=== PATIENT | male | born 1955 | race Caucasian/White ===

== ENCOUNTER 2020-11-17 14:17 | Inpatient (IN) ==
[2020-11-17] MEDS ORDERED: *HR* OxyCODONE/APAP 5/325 TABLET PO ONE (15:28)
[2020-11-17] MEDS ORDERED: Orphenadrine 60 MG/2 ML VIAL IM ONE (18:34)
[2020-11-17] MEDS ORDERED: methylPREDNISolone 125 MG/2 ML VIAL IM STA (18:34)
[2020-11-17] MEDS ORDERED: *HR* HYDROmorphone (PF) 1 MG/ML SYRINGE IM ONE (19:24)
[2020-11-17 21:57] LABS: Basophils # 0.1 K/mcL (0.0-0.2); Basophils % 1.1 %; Eosinophils # 0.1 K/mcL (0.0-0.6); Eosinophils % 1.2 %; Hematocrit 48.9 % (37.5-50.1); Hemoglobin 16.5 g/dL (12.9-16.9); Immature Granulocytes % 0.2 % (0-4); Lymphocytes # 1.4 K/mcL (0.6-4.6); Lymphocytes % 21.7 %; Mean Corpuscular HGB Conc 33.7 g/dL (31.6-35.5); Mean Corpuscular Hemoglobin 30.2 pg (28.0-33.3); Mean Corpuscular Volume 89.4 fL (83.0-100.0); Mean Platelet Volume 9.5 fL (9.4-12.4); Monocytes # 0.3 K/mcL (0.0-1.3); Monocytes % 3.9 %; Neutrophils # 4.6 K/mcL (1.6-8.9); Platelet Count 216 K/mcL (140-400); Red Blood Count 5.47 M/mcL (4.19-5.50); Red Cell Distribution Width 13.5 % (11.5-14.5); Segmented Neutrophils % 71.9 %; White Blood Count 6.4 K/mcL (4.3-11.1)
[2020-11-17 22:13] LABS: Calcium 9.3 mg/dL (8.6-10.3); Potassium 4.6 mEq/L (3.5-5.1)
[2020-11-17] MEDS ORDERED: Ondansetron 4 MG/2 ML VIAL IVP PRN (23:44)
[2020-11-17] MEDS ORDERED: Naloxone 0.4 MG/ML INJ IVP PRN (23:44)
[2020-11-17] MEDS ORDERED: Acetaminophen 325 MG TABLET PO PRN (23:44)
[2020-11-18 05:28] LABS: Basophils % 0.4 %; Hematocrit 52.8 % (37.5-50.1); Hemoglobin 17.2 g/dL (12.9-16.9); Immature Granulocytes % 0.4 % (0-4); Lymphocytes # 0.9 K/mcL (0.6-4.6); Mean Corpuscular HGB Conc 32.6 g/dL (31.6-35.5); Mean Platelet Volume 12.1 fL (9.4-12.4); Monocytes # 0.1 K/mcL (0.0-1.3); Monocytes % 0.9 %; Neutrophils # 5.8 K/mcL (1.6-8.9); Platelet Count 170 K/mcL (140-400); Red Blood Count 5.93 M/mcL (4.19-5.50); Red Cell Distribution Width 13.2 % (11.5-14.5); Segmented Neutrophils % 85.3 %; White Blood Count 6.8 K/mcL (4.3-11.1)
[2020-11-18 05:38] LABS: Calcium 9.3 mg/dL (8.6-10.3); Magnesium 1.7 mg/dL (1.6-2.6); Potassium 4.8 mEq/L (3.5-5.1)
[2020-11-18 05:42] LABS: Prothrombin Time 11.5 Seconds (9.4-12.1)
[2020-11-18 06:35] LABS: Platelet Estimate Normal (Normal)
[2020-11-18] MEDS: *HR* Enoxaparin 40 MG/0.4 ML SYRINGE SQ SCH (07:51)
[2020-11-18] MEDS: diazePAM 10 MG TABLET PO SCH ×3 (07:51→19:57)
[2020-11-18] MEDS: amLODIPine 5 MG TABLET PO SCH (07:51)
[2020-11-18] MEDS: lisinopriL 20 MG TABLET PO SCH (07:51)
[2020-11-18] MEDS: Methylphenidate HCl 10 MG TABLET PO SCH (07:51)
[2020-11-18] MEDS ORDERED: GI Cocktail 40 ML EACH PO ONE (13:32)
[2020-11-18] MEDS ORDERED: Ipratropium/Albuterol Neb 3 ML IH PRN (18:45)
[2020-11-18] MEDS: Sucralfate 1 GM TABLET PO SCH (19:57)
[2020-11-18] MEDS ORDERED: Ketorolac 30 MG/ML VIAL IVP ONE (20:11)
[2020-11-19 05:36] LABS: Basophils # 0.1 K/mcL (0.0-0.2); Basophils % 0.5 %; Eosinophils # 0.1 K/mcL (0.0-0.6); Eosinophils % 0.6 %; Hematocrit 51.2 % (37.5-50.1); Hemoglobin 16.6 g/dL (12.9-16.9); Immature Granulocytes % 0.3 % (0-4); Immature Platelets 3.1 % (1.1-6.1); Lymphocytes # 3.4 K/mcL (0.6-4.6); Lymphocytes % 25.4 %; Mean Corpuscular HGB Conc 32.4 g/dL (31.6-35.5); Mean Corpuscular Hemoglobin 29.4 pg (28.0-33.3); Mean Corpuscular Volume 90.6 fL (83.0-100.0); Mean Platelet Volume 9.6 fL (9.4-12.4); Monocytes # 0.8 K/mcL (0.0-1.3); Neutrophils # 8.9 K/mcL (1.6-8.9); Platelet Count 228 K/mcL (140-400); Red Blood Count 5.65 M/mcL (4.19-5.50); Red Cell Distribution Width 13.5 % (11.5-14.5); Segmented Neutrophils % 67.2 %
[2020-11-19 05:41] LABS: White Blood Count 13.2 K/mcL (4.3-11.1)
[2020-11-19 06:31] LABS: Calcium 9.7 mg/dL (8.6-10.3); Magnesium 2.3 mg/dL (1.6-2.6); Potassium 4.4 mEq/L (3.5-5.1)
[2020-11-19] MEDS: Sucralfate 1 GM TABLET PO SCH ×2 (10:19→20:58)
[2020-11-19] MEDS: *HR* Enoxaparin 40 MG/0.4 ML SYRINGE SQ SCH (10:20)
[2020-11-19] MEDS: Methylphenidate HCl 10 MG TABLET PO SCH ×3 (10:21→20:57)
[2020-11-19] MEDS: lisinopriL 20 MG TABLET PO SCH (10:21)
[2020-11-19] MEDS: diazePAM 10 MG TABLET PO SCH (10:21)
[2020-11-19] MEDS: amLODIPine 5 MG TABLET PO SCH (10:21)
[2020-11-19] MEDS: 0.9 % Sodium Chloride 1,000 ML IVC SCH (13:11)
[2020-11-19] MEDS: *HR* OxyCODONE/APAP 7.5/325 TABLET PO PRN ×2 (14:40→20:57)
[2020-11-20] MEDS: *HR* OxyCODONE/APAP 7.5/325 TABLET PO PRN (02:06)
[2020-11-20 03:22] LABS: Basophils # 0.1 K/mcL (0.0-0.2); Basophils % 0.9 %; Eosinophils # 0.3 K/mcL (0.0-0.6); Eosinophils % 2.7 %; Hematocrit 44.2 % (37.5-50.1); Immature Granulocytes % 0.2 % (0-4); Lymphocytes # 3.7 K/mcL (0.6-4.6); Lymphocytes % 39.6 %; Mean Corpuscular HGB Conc 33.3 g/dL (31.6-35.5); Mean Corpuscular Hemoglobin 30.3 pg (28.0-33.3); Mean Corpuscular Volume 91.1 fL (83.0-100.0); Mean Platelet Volume 9.5 fL (9.4-12.4); Monocytes # 0.8 K/mcL (0.0-1.3); Monocytes % 8.2 %; Neutrophils # 4.6 K/mcL (1.6-8.9); Platelet Count 187 K/mcL (140-400); Red Blood Count 4.85 M/mcL (4.19-5.50); Red Cell Distribution Width 13.4 % (11.5-14.5); Segmented Neutrophils % 48.4 %; White Blood Count 9.4 K/mcL (4.3-11.1)
[2020-11-20 03:23] LABS: Hemoglobin 14.7 g/dL (12.9-16.9)
[2020-11-20 03:42] LABS: Calcium 8.8 mg/dL (8.6-10.3); Magnesium 1.9 mg/dL (1.6-2.6); Potassium 4.6 mEq/L (3.5-5.1)
[2020-11-20] MEDS: *HR* HYDROmorphone (PF) 1 MG/ML SYRINGE IVP PRN ×3 (09:06→21:46)
[2020-11-20] MEDS: amLODIPine 5 MG TABLET PO SCH (09:07)
[2020-11-20] MEDS: Sucralfate 1 GM TABLET PO SCH ×2 (09:07→21:46)
[2020-11-20] MEDS: lisinopriL 20 MG TABLET PO SCH (09:07)
[2020-11-20] MEDS: Methylphenidate HCl 10 MG TABLET PO SCH ×3 (09:07→21:46)
[2020-11-20] MEDS: 0.9 % Sodium Chloride 1,000 ML IVC SCH (09:08)
[2020-11-20] MEDS: *HR* Enoxaparin 40 MG/0.4 ML SYRINGE SQ SCH (09:11)
[2020-11-21] MEDS: *HR* HYDROmorphone (PF) 1 MG/ML SYRINGE IVP PRN (03:45)
[2020-11-21] MEDS: 0.9 % Sodium Chloride 1,000 ML IVC SCH (05:28)
[2020-11-21 06:24] LABS: Calcium 9.1 mg/dL (8.6-10.3); Potassium 4.8 mEq/L (3.5-5.1)
[2020-11-21] MEDS ORDERED: *HR* HYDROmorphone (PF) 1 MG/ML SYRINGE IVP PRN (07:21)
[2020-11-21] MEDS: Methylphenidate HCl 10 MG TABLET PO SCH ×3 (08:46→20:38)
[2020-11-21] MEDS: lisinopriL 20 MG TABLET PO SCH (08:46)
[2020-11-21] MEDS: amLODIPine 5 MG TABLET PO SCH (08:47)
[2020-11-21] MEDS: Sucralfate 1 GM TABLET PO SCH ×2 (08:47→20:38)
[2020-11-21] MEDS: *HR* Enoxaparin 40 MG/0.4 ML SYRINGE SQ SCH (08:47)
[2020-11-21] MEDS: *HR* OxyCODONE/APAP 10/325 TABLET PO PRN ×2 (10:35→17:40)
[2020-11-21] MEDS: diazePAM 5 MG TABLET PO PRN (17:40)
[2020-11-21] MEDS: Gabapentin 300 MG CAPSULE PO SCH (20:38)
[2020-11-22] MEDS: *HR* OxyCODONE/APAP 10/325 TABLET PO PRN ×4 (00:46→21:56)
[2020-11-22] MEDS: 0.9 % Sodium Chloride 1,000 ML IVC SCH ×2 (01:13→21:56)
[2020-11-22] MEDS: Sucralfate 1 GM TABLET PO SCH ×2 (08:46→21:54)
[2020-11-22] MEDS: lisinopriL 20 MG TABLET PO SCH (08:46)
[2020-11-22] MEDS: amLODIPine 5 MG TABLET PO SCH (08:47)
[2020-11-22] MEDS: Methylphenidate HCl 10 MG TABLET PO SCH ×2 (08:47→15:04)
[2020-11-22] MEDS: *HR* Enoxaparin 40 MG/0.4 ML SYRINGE SQ SCH (08:47)
[2020-11-22 10:41] LABS: Calcium 8.9 mg/dL (8.6-10.3); Potassium 4.7 mEq/L (3.5-5.1)
[2020-11-22] MEDS ORDERED: Melatonin 3 MG TABLET PO PRN (16:56)
[2020-11-22] MEDS: predniSONE 20 MG TABLET PO SCH (18:03)
[2020-11-22] MEDS: Azithromycin 250 MG TABLET PO SCH (18:03)
[2020-11-22] MEDS: Ipratropium/Albuterol Neb 3 ML IH SCH (21:36)
[2020-11-22] MEDS: Budesonide/Formoterol 160/4.5 1 PUFF INH IH SCH (21:36)
[2020-11-22] MEDS: diazePAM 5 MG TABLET PO PRN (21:54)
[2020-11-22] MEDS: *HR* Heparin 5,000 UNIT/ML VIAL SQ SCH (21:54)
[2020-11-22] MEDS: Gabapentin 300 MG CAPSULE PO SCH (21:54)
[2020-11-23 01:57] LABS: Calcium 8.9 mg/dL (8.6-10.3); Potassium 5.7 mEq/L (3.5-5.1)
[2020-11-23] MEDS: Ipratropium/Albuterol Neb 3 ML IH SCH ×4 (04:38→21:47)
[2020-11-23] MEDS: *HR* Heparin 5,000 UNIT/ML VIAL SQ SCH ×2 (05:59→14:36)
[2020-11-23] MEDS: Multivit/Ca/Min/Fe/FA 1 TAB TABLET PO SCH (09:33)
[2020-11-23] MEDS: lisinopriL 20 MG TABLET PO SCH (09:33)
[2020-11-23] MEDS: amLODIPine 5 MG TABLET PO SCH (09:33)
[2020-11-23] MEDS: predniSONE 20 MG TABLET PO SCH (09:34)
[2020-11-23] MEDS: Nicotine 21 MG PATCH.TD24 TD SCH (09:34)
[2020-11-23] MEDS: Sucralfate 1 GM TABLET PO SCH ×2 (09:34→19:58)
[2020-11-23] MEDS: *HR* OxyCODONE/APAP 10/325 TABLET PO PRN ×2 (09:34→16:21)
[2020-11-23] MEDS: Budesonide/Formoterol 160/4.5 1 PUFF INH IH SCH ×2 (10:25→21:47)
[2020-11-23] MEDS ORDERED: SODIUM ZIRCONIUM CYCLOSILICATE 5 GM POWD.PACK PO SCH (11:45)
[2020-11-23] MEDS ORDERED: Calcium Gluconate 1gm/50mL 1 GM/50 ML BAG IVPB ONE (15:31)
[2020-11-23] MEDS ORDERED: Insulin Human Regular 10 UNIT in 0.9 % Sodium Chloride 10 ML IV ONE (15:31)
[2020-11-23] MEDS ORDERED: *HR* Dextrose 50 % in Water (Vial) 50 ML VIAL IVP ONE (15:45)
[2020-11-23] MEDS: Azithromycin 250 MG TABLET PO SCH (16:21)
[2020-11-23] MEDS: Gabapentin 300 MG CAPSULE PO SCH (19:58)
[2020-11-24] MEDS: *HR* OxyCODONE/APAP 10/325 TABLET PO PRN ×3 (03:39→23:20)
[2020-11-24] MEDS: diazePAM 5 MG TABLET PO PRN (03:39)
[2020-11-24 04:08] LABS: Calcium 9.3 mg/dL (8.6-10.3); Magnesium 1.9 mg/dL (1.6-2.6); Phosphorous 3.3 mg/dL (2.7-4.5); Potassium 4.9 mEq/L (3.5-5.1)
[2020-11-24 04:12] LABS: Hematocrit 47.5 % (37.5-50.1); Hemoglobin 15.6 g/dL (12.9-16.9); Mean Corpuscular HGB Conc 32.8 g/dL (31.6-35.5); Mean Corpuscular Hemoglobin 29.3 pg (28.0-33.3); Mean Corpuscular Volume 89.3 fL (83.0-100.0); Mean Platelet Volume 9.6 fL (9.4-12.4); Platelet Count 231 K/mcL (140-400); Red Blood Count 5.32 M/mcL (4.19-5.50); Red Cell Distribution Width 13.6 % (11.5-14.5); White Blood Count 11.7 K/mcL (4.3-11.1)
[2020-11-24] MEDS: Ipratropium/Albuterol Neb 3 ML IH SCH ×4 (04:36→22:05)
[2020-11-24] MEDS: Multivit/Ca/Min/Fe/FA 1 TAB TABLET PO SCH (09:27)
[2020-11-24] MEDS: predniSONE 20 MG TABLET PO SCH (09:27)
[2020-11-24] MEDS: amLODIPine 5 MG TABLET PO SCH (09:27)
[2020-11-24] MEDS: Sucralfate 1 GM TABLET PO SCH ×2 (09:27→21:20)
[2020-11-24] MEDS: lisinopriL 20 MG TABLET PO SCH (09:27)
[2020-11-24] MEDS: Nicotine 21 MG PATCH.TD24 TD SCH (09:28)
[2020-11-24] MEDS: Budesonide/Formoterol 160/4.5 1 PUFF INH IH SCH ×2 (10:32→22:05)
[2020-11-24] MEDS: Azithromycin 250 MG TABLET PO SCH (17:07)
[2020-11-24 18:58] VITALS: TEMP 98
[2020-11-24] MEDS: Gabapentin 300 MG CAPSULE PO SCH (21:20)
[2020-11-25] MEDS: Ipratropium/Albuterol Neb 3 ML IH SCH ×3 (03:54→15:19)
[2020-11-25 05:11] LABS: Basophils % 0.3 %; Eosinophils # 0.1 K/mcL (0.0-0.6); Eosinophils % 0.5 %; Hemoglobin 15.6 g/dL (12.9-16.9); Immature Granulocytes % 0.5 % (0-4); Lymphocytes # 2.1 K/mcL (0.6-4.6); Lymphocytes % 19.1 %; Mean Corpuscular HGB Conc 33.2 g/dL (31.6-35.5); Mean Corpuscular Volume 90.4 fL (83.0-100.0); Mean Platelet Volume 9.4 fL (9.4-12.4); Monocytes # 1.1 K/mcL (0.0-1.3); Monocytes % 9.7 %; Neutrophils # 7.7 K/mcL (1.6-8.9); Nucleated Red Blood Cells 0.2 /100 WBC (0); Platelet Count 219 K/mcL (140-400); Red Cell Distribution Width 13.8 % (11.5-14.5); Segmented Neutrophils % 69.9 %; White Blood Count 10.9 K/mcL (4.3-11.1)
[2020-11-25] MEDS: *HR* OxyCODONE/APAP 10/325 TABLET PO PRN ×2 (05:22→11:51)
[2020-11-25 05:30] LABS: Calcium 8.8 mg/dL (8.6-10.3); Magnesium 1.8 mg/dL (1.6-2.6); Phosphorous 3.5 mg/dL (2.7-4.5)
[2020-11-25 06:37] VITALS: BP 113/65; PULSE 91
[2020-11-25] MEDS ORDERED: NIFEdipine XL (24 HR) 30 MG TAB.ER.24 PO SCH (09:00)
[2020-11-25] MEDS: predniSONE 20 MG TABLET PO SCH (09:31)
[2020-11-25] MEDS: Multivit/Ca/Min/Fe/FA 1 TAB TABLET PO SCH (09:31)
[2020-11-25] MEDS: Sucralfate 1 GM TABLET PO SCH (09:32)
[2020-11-25] MEDS: Nicotine 21 MG PATCH.TD24 TD SCH (09:32)
[2020-11-25] MEDS: diazePAM 5 MG TABLET PO PRN (09:36)
[2020-11-25] MEDS: Budesonide/Formoterol 160/4.5 1 PUFF INH IH SCH (10:17)
[2020-11-25 10:20] VITALS: O2SAT 94
[2020-11-25] MEDS ORDERED: *HR* HYDROmorphone (PF) 1 MG/ML SYRINGE IVP ONE (11:47)
[2020-11-25 13:18] LABS: Adenovirus Not Detected (Not Detect); Bordetella Pertussis Not Detected (Not Detect); Chlamydophila pneumoniae Not Detected (Not Detect); Coronavirus 229E Not Detected (Not Detect); Coronavirus HKU1 Not Detected (Not Detect); Coronavirus NL63 Not Detected (Not Detect); Coronavirus OC43 Not Detected (Not Detect); Human Metapneumovirus Not Detected (Not Detect); Human Rhinovirus/Enterovirus Not Detected (Not Detect); Influenza A Subtype 2009 H1 Not Detected (Not Detect); Influenza B Not Detected (Not Detect); Mycoplasma pneumoniae Not Detected (Not Detect); Parainfluenza Virus 1 Not Detected (Not Detect); Parainfluenza Virus 2 Not Detected (Not Detect); Parainfluenza Virus 3 Not Detected (Not Detect); Parainfluenza Virus 4 Not Detected (Not Detect); Respiratory Syncytial Virus Not Detected (Not Detect); SARS-CoV-2 Not Detected (Not Detect)
== END 2020-11-25 14:45 | disposition other institution (70) | DRG 554 ==
LOC: 3NENU 14:17 → EMEROOARM 14:17 → SUATTDRO 23:29 → 3NENU 11-18 00:12 → SUATTDRO 11-19 17:25
PROVIDERS: ADMIT Student in an Organized Health Care Education/Training Program; ATTEND Internal Medicine

== ENCOUNTER 2020-12-15 16:48 | Inpatient (IN) ==
[2020-12-15] MEDS ORDERED: Ipratropium/Albuterol Neb 3 ML IH ONE (18:20)
[2020-12-15] MEDS ORDERED: predniSONE 20 MG TABLET PO ONE (18:35)
[2020-12-15 19:08] LABS: Basophils # 0.1 K/mcL (0.0-0.2); Basophils % 0.8 %; Eosinophils # 0.4 K/mcL (0.0-0.6); Eosinophils % 4.5 %; Hematocrit 53.4 % (37.5-50.1); Hemoglobin 16.7 g/dL (12.9-16.9); Immature Granulocytes % 0.3 % (0-4); Lymphocytes # 2.7 K/mcL (0.6-4.6); Lymphocytes % 30.9 %; Mean Corpuscular HGB Conc 31.3 g/dL (31.6-35.5); Mean Corpuscular Volume 92.9 fL (83.0-100.0); Mean Platelet Volume 9.7 fL (9.4-12.4); Monocytes # 0.8 K/mcL (0.0-1.3); Monocytes % 9.7 %; Neutrophils # 4.6 K/mcL (1.6-8.9); Platelet Count 180 K/mcL (140-400); Red Blood Count 5.75 M/mcL (4.19-5.50); Red Cell Distribution Width 13.8 % (11.5-14.5); Segmented Neutrophils % 53.8 %; White Blood Count 8.6 K/mcL (4.3-11.1)
[2020-12-15 19:34] LABS: Troponin I 0.04 ng/mL (< 0.04)
[2020-12-15 20:05] LABS: Calcium 9.2 mg/dL (8.6-10.3); Potassium 4.6 mEq/L (3.5-5.1)
[2020-12-15 20:40] LABS: Influenza A PCR Negative (Negative); Influenza B PCR Negative (Negative); Resp. Syncytial Virus PCR Negative (Negative)
[2020-12-15 20:41] LABS: SARS-CoV-2 by PCR (In House) Negative (Negative)
[2020-12-15] MEDS ORDERED: Ondansetron 4 MG/2 ML VIAL IVP PRN (21:10)
[2020-12-15] MEDS ORDERED: Acetaminophen 325 MG TABLET PO PRN (21:10)
[2020-12-15] MEDS ORDERED: Naloxone 0.4 MG/ML INJ IVP PRN (21:10)
[2020-12-15] MEDS ORDERED: Ipratropium/Albuterol Neb 3 ML IH PRN (22:29)
[2020-12-15] MEDS: Azithromycin 500 MG in 0.9 % Sodium Chloride 250 ML IVPB SCH (23:31)
[2020-12-16] MEDS ORDERED: *HR* OxyCODONE/APAP 10/325 TABLET PO ONE (02:31)
[2020-12-16 03:01] LABS: Basophils % 0.2 %; Eosinophils % 0.1 %; Hematocrit 50.8 % (37.5-50.1); Hemoglobin 16.4 g/dL (12.9-16.9); Immature Granulocytes % 0.4 % (0-4); Lymphocytes # 0.8 K/mcL (0.6-4.6); Lymphocytes % 9.3 %; Mean Corpuscular HGB Conc 32.3 g/dL (31.6-35.5); Mean Platelet Volume 9.8 fL (9.4-12.4); Monocytes # 0.3 K/mcL (0.0-1.3); Monocytes % 3.5 %; Neutrophils # 7.2 K/mcL (1.6-8.9); Platelet Count 198 K/mcL (140-400); Red Blood Count 5.46 M/mcL (4.19-5.50); Red Cell Distribution Width 13.7 % (11.5-14.5); Segmented Neutrophils % 86.5 %; White Blood Count 8.3 K/mcL (4.3-11.1)
[2020-12-16 03:16] LABS: Prothrombin Time 12.1 Seconds (9.4-12.1)
[2020-12-16 03:17] LABS: Calcium 9.1 mg/dL (8.6-10.3); Magnesium 2.1 mg/dL (1.6-2.6); Potassium 5.1 mEq/L (3.5-5.1)
[2020-12-16] MEDS: *HR* Heparin 5,000 UNIT/ML VIAL SQ SCH ×3 (05:47→21:38)
[2020-12-16] MEDS: Azithromycin 500 MG in 0.9 % Sodium Chloride 250 ML IVPB SCH (08:55)
[2020-12-16] MEDS ORDERED: predniSONE 20 MG TABLET PO SCH (09:00)
[2020-12-16 09:41] LABS: Estimated Average Glucose 134 mg/dl; Hemoglobin A1C 6.3 %
[2020-12-16 09:46] LABS: ABG Base Excess -2 mEq/L (-2 to 3); ABG HCO3 27 mEq/L (21-27); ABG Oxygen Saturation 92 % (95-98); ABG PCO2 59 mmHg (35-45); ABG PH 7.27 pH Units (7.32-7.45); ABG PO2 75 mmHg (85-104); ABG TCO2 29 mEq/L (20-26)
[2020-12-16] MEDS ORDERED: diazePAM 10 MG TABLET PO ONE (10:08)
[2020-12-16] MEDS: Ipratropium/Albuterol Neb 3 ML IH SCH ×5 (10:11→23:54)
[2020-12-16] MEDS: 0.9 % Sodium Chloride 1,000 ML IVC SCH (10:47)
[2020-12-16] MEDS ORDERED: MethylPREDNISolone 40 MG/ML VIAL IVP SCH ×2 (12:30→17:00)
[2020-12-16] MEDS: MethylPREDNISolone 40 MG/ML VIAL IVP SCH (15:44)
[2020-12-16 15:45] LABS: ABG Base Excess 0 mEq/L (-2 to 3); ABG HCO3 25 mEq/L (21-27); ABG Oxygen Saturation 92 % (95-98); ABG PCO2 41 mmHg (35-45); ABG PH 7.39 pH Units (7.32-7.45); ABG PO2 63 mmHg (85-104); ABG TCO2 26 mEq/L (20-26)
[2020-12-16] MEDS: Budesonide/Formoterol 160/4.5 1 PUFF INH IH SCH (20:39)
[2020-12-16] MEDS: diazePAM 10 MG TABLET PO SCH (21:37)
[2020-12-16] MEDS: Sucralfate 1 GM TABLET PO SCH (21:37)
[2020-12-16] MEDS: Methylphenidate HCl 10 MG TABLET PO SCH (21:38)
[2020-12-17] MEDS: 0.9 % Sodium Chloride 1,000 ML IVC SCH ×3 (00:37→22:43)
[2020-12-17] MEDS: MethylPREDNISolone 40 MG/ML VIAL IVP SCH ×3 (00:37→18:18)
[2020-12-17] MEDS: Ipratropium/Albuterol Neb 3 ML IH SCH ×7 (04:47→23:46)
[2020-12-17] MEDS: *HR* Heparin 5,000 UNIT/ML VIAL SQ SCH ×3 (05:46→22:39)
[2020-12-17] MEDS: Budesonide/Formoterol 160/4.5 1 PUFF INH IH SCH ×2 (07:30→19:43)
[2020-12-17] MEDS: NIFEdipine XL (24 HR) 30 MG TAB.ER.24 PO SCH (09:36)
[2020-12-17] MEDS: Gabapentin 100 MG CAPSULE PO SCH ×3 (09:36→20:29)
[2020-12-17] MEDS: Sennosides/Docusate Sodium TABLET PO SCH (09:36)
[2020-12-17] MEDS: diazePAM 10 MG TABLET PO SCH (09:36)
[2020-12-17] MEDS: Sucralfate 1 GM TABLET PO SCH ×2 (09:36→20:29)
[2020-12-17] MEDS: Azithromycin 500 MG in 0.9 % Sodium Chloride 250 ML IVPB SCH (09:36)
[2020-12-17] MEDS: polyethylene glycoL 3350 17 GM POWD.PACK PO SCH (09:37)
[2020-12-17] MEDS: Methylphenidate HCl 10 MG TABLET PO SCH ×3 (09:46→20:29)
[2020-12-17 11:15] LABS: Phosphorous 3.3 mg/dL (2.7-4.5)
[2020-12-17] MEDS ORDERED: *HR* Dextrose 50 % in Water (Vial) 50 ML VIAL IVP PRN (11:31)
[2020-12-17] MEDS ORDERED: D5% in Water 1,000 ML IVC PRN (11:31)
[2020-12-17] MEDS ORDERED: Dextrose Gel 15 GM/37.5 ML TUBE PO PRN ×2 (11:31)
[2020-12-17] MEDS: Insulin LISPRO 300 UNITS/3 ML VIAL SUBQ SCH ×2 (12:08→16:45)
[2020-12-17] MEDS: Ampicillin/Sulbactam 3,000 MG in 0.9 % Sodium Chloride Mini Bag 100 ML IVPB SCH ×2 (13:20→18:17)
[2020-12-17] MEDS: diazePAM 10 MG TABLET PO PRN (20:29)
[2020-12-17] MEDS ORDERED: Insulin LISPRO 300 UNITS/3 ML VIAL SUBQ SCH (21:00)
[2020-12-18] MEDS: Ampicillin/Sulbactam 3,000 MG in 0.9 % Sodium Chloride Mini Bag 100 ML IVPB SCH ×2 (00:52→06:24)
[2020-12-18 03:15] LABS: Calcium 8.3 mg/dL (8.6-10.3); Phosphorous 2.8 mg/dL (2.7-4.5)
[2020-12-18] MEDS: Ipratropium/Albuterol Neb 3 ML IH SCH ×3 (03:27→11:27)
[2020-12-18] MEDS: MethylPREDNISolone 40 MG/ML VIAL IVP SCH (06:22)
[2020-12-18] MEDS: diazePAM 10 MG TABLET PO PRN (06:24)
[2020-12-18] MEDS: *HR* Heparin 5,000 UNIT/ML VIAL SQ SCH (06:26)
[2020-12-18] MEDS: Budesonide/Formoterol 160/4.5 1 PUFF INH IH SCH (07:24)
[2020-12-18] MEDS: Insulin LISPRO 300 UNITS/3 ML VIAL SUBQ SCH ×2 (07:49→11:40)
[2020-12-18] MEDS: Methylphenidate HCl 10 MG TABLET PO SCH (09:12)
[2020-12-18] MEDS: Azithromycin 500 MG in 0.9 % Sodium Chloride 250 ML IVPB SCH (09:12)
[2020-12-18] MEDS: polyethylene glycoL 3350 17 GM POWD.PACK PO SCH (09:13)
[2020-12-18] MEDS: NIFEdipine XL (24 HR) 30 MG TAB.ER.24 PO SCH (09:13)
[2020-12-18] MEDS: Sucralfate 1 GM TABLET PO SCH (09:13)
[2020-12-18] MEDS: Sennosides/Docusate Sodium TABLET PO SCH (09:13)
[2020-12-18] MEDS: Gabapentin 100 MG CAPSULE PO SCH (09:13)
[2020-12-18 10:13] VITALS: BP 134/56; PULSE 104; TEMP 97.6; O2SAT 91
[2020-12-19] MEDS ORDERED: Azithromycin 250 MG TABLET PO SCH (09:00)
[2020-12-19] MEDS ORDERED: predniSONE 20 MG TABLET PO SCH (09:00)
== END 2020-12-18 13:53 | disposition left against medical advice (07) | DRG 193 ==
LOC: EMEROOARM 16:48 → 3ANU 16:48 → SUATTDRO 22:01 → 3ANU 22:29
PROVIDERS: ADMIT Student in an Organized Health Care Education/Training Program; ATTEND Internal Medicine

== ENCOUNTER 2020-12-21 07:21 | Inpatient (IN) ==
[2020-12-21] MEDS ORDERED: Isovue-370 500 ML BOTTLE IVP ONE (07:35)
[2020-12-21 08:07] LABS: Basophils % 0.2 %; Eosinophils # 0.3 K/mcL (0.0-0.6); Eosinophils % 2.9 %; Hematocrit 48.3 % (37.5-50.1); Hemoglobin 15.7 g/dL (12.9-16.9); Immature Granulocytes % 0.5 % (0-4); Lymphocytes # 1.7 K/mcL (0.6-4.6); Lymphocytes % 17.8 %; Mean Corpuscular HGB Conc 32.5 g/dL (31.6-35.5); Mean Corpuscular Hemoglobin 29.5 pg (28.0-33.3); Mean Corpuscular Volume 90.8 fL (83.0-100.0); Monocytes # 1.1 K/mcL (0.0-1.3); Monocytes % 11.1 %; Neutrophils # 6.4 K/mcL (1.6-8.9); Platelet Count 229 K/mcL (140-400); Red Blood Count 5.32 M/mcL (4.19-5.50); Red Cell Distribution Width 13.8 % (11.5-14.5); Segmented Neutrophils % 67.5 %; White Blood Count 9.5 K/mcL (4.3-11.1)
[2020-12-21 08:28] LABS: Albumin 3.5 g/dL (3.5-5.7); Albumin/Globulin Ratio 1.3 (1.1-2.2); Bilirubin,Direct 0.1 mg/dL (0.0-0.2); Bilirubin,Indirect 0.5 mg/dL (0.0-1.0); Bilirubin,Total 0.6 mg/dL (0.3-1.0); Calcium 9.2 mg/dL (8.6-10.3); Globulin 2.8 g/dL (2.4-3.5); Potassium 4.6 mEq/L (3.5-5.1); Total Protein 6.3 g/dL (6.4-8.9)
[2020-12-21 09:00] LABS: Troponin I 0.04 ng/mL (< 0.04)
[2020-12-21 11:57] LABS: Bilirubin,Urine Negative (Negative); Blood,Urine Negative (Negative); Clarity,Urine Clear (Clear); Color,Urine Light-Yellow (Yellow); Glucose,Urine (UA) Normal (Normal); Ketones,Urine Negative (Negative); Leukocyte Esterase,Urine Negative (Negative); Nitrite,Urine Negative (Negative); Protein,Urine 30 mg/dL (Neg-Trace); RBC,Urine 0-3 per hpf (0-3); Specific Gravity,Urine > 1.030 (1.010-1.025); Squamous Epithelial Cell,Urine Few per hpf (None-Few); Urobilinogen,Urine Normal (Normal); WBC,Urine 0-3 per hpf (0-3)
[2020-12-21] MEDS ORDERED: MOM Conc 10 ML UD.LIQ PO PRN (12:03)
[2020-12-21] MEDS ORDERED: Ondansetron ODT 4 MG TAB.RAPDIS SL PRN (12:03)
[2020-12-21] MEDS ORDERED: Naloxone 0.4 MG/ML INJ IVP PRN (12:03)
[2020-12-21] MEDS ORDERED: diazePAM 5 MG TABLET PO PRN (12:14)
[2020-12-21] MEDS: Ipratropium/Albuterol Neb 3 ML IH SCH ×4 (12:50→23:11)
[2020-12-21] MEDS: Budesonide/Formoterol 160/4.5 1 PUFF INH IH SCH ×2 (12:50→19:16)
[2020-12-21] MEDS: cefTRIAXone 1,000 MG in 0.9 % Sodium Chloride Mini Bag 100 ML IVPB SCH (16:28)
[2020-12-21] MEDS: diazePAM 10 MG TABLET PO SCH ×2 (16:28→20:23)
[2020-12-21] MEDS: Gabapentin 300 MG CAPSULE PO SCH ×2 (16:28→20:23)
[2020-12-21] MEDS: predniSONE 20 MG TABLET PO SCH (16:28)
[2020-12-21] MEDS: Azithromycin 500 MG in 0.9 % Sodium Chloride 250 ML IVPB SCH (16:29)
[2020-12-21] MEDS: Nicotine 21 MG PATCH.TD24 TD SCH (16:29)
[2020-12-21] MEDS: *HR* Heparin 5,000 UNIT/ML VIAL SQ SCH ×2 (16:29→20:24)
[2020-12-21] MEDS ORDERED: *HR* Dextrose 50 % in Water (Vial) 50 ML VIAL IVP PRN (16:32)
[2020-12-21] MEDS ORDERED: Dextrose Gel 15 GM/37.5 ML TUBE PO PRN ×2 (16:32)
[2020-12-21] MEDS ORDERED: D5% in Water 1,000 ML IVC PRN (16:32)
[2020-12-21] MEDS: Insulin LISPRO 300 UNITS/3 ML VIAL SUBQ SCH ×2 (16:41→20:24)
[2020-12-21 16:57] LABS: ABG Base Excess 2 mEq/L (-2 to 3); ABG HCO3 27 mEq/L (21-27); ABG Oxygen Saturation 93 % (95-98); ABG PCO2 42 mmHg (35-45); ABG PH 7.42 pH Units (7.32-7.45); ABG PO2 66 mmHg (85-104); ABG TCO2 28 mEq/L (20-26)
[2020-12-21] MEDS ORDERED: Perflutren Lipid Microsphere 1.3 ML in 0.9 % Sodium Chloride 8.7 ML IVP PRN (17:02)
[2020-12-21] MEDS: NIFEdipine XL (24 HR) 30 MG TAB.ER.24 PO SCH (17:55)
[2020-12-21] MEDS: Sucralfate 1 GM TABLET PO SCH (20:23)
[2020-12-22] MEDS: Ipratropium/Albuterol Neb 3 ML IH SCH ×6 (03:03→23:29)
[2020-12-22] MEDS: *HR* Heparin 5,000 UNIT/ML VIAL SQ SCH ×3 (05:05→20:24)
[2020-12-22] MEDS: Sucralfate 1 GM TABLET PO SCH ×2 (05:05→15:38)
[2020-12-22 06:13] LABS: Hematocrit 47.7 % (37.5-50.1); Hemoglobin 15.4 g/dL (12.9-16.9); Mean Corpuscular HGB Conc 32.3 g/dL (31.6-35.5); Mean Corpuscular Hemoglobin 29.1 pg (28.0-33.3); Mean Corpuscular Volume 90.2 fL (83.0-100.0); Platelet Count 222 K/mcL (140-400); Red Blood Count 5.29 M/mcL (4.19-5.50); Red Cell Distribution Width 13.7 % (11.5-14.5); White Blood Count 10.6 K/mcL (4.3-11.1)
[2020-12-22 06:34] LABS: Albumin 3.4 g/dL (3.5-5.7); Albumin/Globulin Ratio 1.1 (1.1-2.2); Bilirubin,Total 0.4 mg/dL (0.3-1.0); Calcium 9.1 mg/dL (8.6-10.3); Chol/HDL Ratio 2.9 (0-4.9); Total Protein 6.4 g/dL (6.4-8.9)
[2020-12-22] MEDS: Budesonide/Formoterol 160/4.5 1 PUFF INH IH SCH ×2 (07:45→19:46)
[2020-12-22 09:12] LABS: Troponin I 0.04 ng/mL (< 0.04)
[2020-12-22] MEDS: Insulin LISPRO 300 UNITS/3 ML VIAL SUBQ SCH ×4 (10:08→20:23)
[2020-12-22] MEDS: Nicotine 21 MG PATCH.TD24 TD SCH (10:08)
[2020-12-22] MEDS: diazePAM 10 MG TABLET PO SCH ×3 (10:09→20:25)
[2020-12-22] MEDS: Gabapentin 300 MG CAPSULE PO SCH ×3 (10:09→20:25)
[2020-12-22] MEDS: predniSONE 20 MG TABLET PO SCH (10:10)
[2020-12-22] MEDS: NIFEdipine XL (24 HR) 30 MG TAB.ER.24 PO SCH (10:10)
[2020-12-22] MEDS ORDERED: Gadolinium Contrast Agent (WT Based) IV PRN (11:35)
[2020-12-22] MEDS ORDERED: 0.9 % Sodium Chloride 1,000 ML IVC SCH (11:45)
[2020-12-22] MEDS: Aspirin Enteric Coated 81 MG Tablet PO SCH (13:16)
[2020-12-22] MEDS: Azithromycin 500 MG in 0.9 % Sodium Chloride 250 ML IVPB SCH (13:17)
[2020-12-22] MEDS: cefTRIAXone 1,000 MG in 0.9 % Sodium Chloride Mini Bag 100 ML IVPB SCH (13:18)
[2020-12-22] MEDS: GuaiFENesin Liq 200 MG/10 ML UDC PO PRN (15:39)
[2020-12-22] MEDS: Melatonin 3 MG TABLET PO PRN (20:25)
[2020-12-23] MEDS: Ipratropium/Albuterol Neb 3 ML IH SCH ×6 (04:11→23:21)
[2020-12-23] MEDS: *HR* Heparin 5,000 UNIT/ML VIAL SQ SCH ×3 (05:46→21:33)
[2020-12-23] MEDS: Sucralfate 1 GM TABLET PO SCH ×2 (05:47→16:47)
[2020-12-23] MEDS: Budesonide/Formoterol 160/4.5 1 PUFF INH IH SCH ×2 (07:29→19:58)
[2020-12-23] MEDS: Insulin LISPRO 300 UNITS/3 ML VIAL SUBQ SCH ×4 (08:35→21:32)
[2020-12-23 08:38] LABS: Calcium 8.7 mg/dL (8.6-10.3); Potassium 4.3 mEq/L (3.5-5.1)
[2020-12-23] MEDS: predniSONE 20 MG TABLET PO SCH (11:25)
[2020-12-23] MEDS: Aspirin Enteric Coated 81 MG Tablet PO SCH (11:25)
[2020-12-23] MEDS: NIFEdipine XL (24 HR) 30 MG TAB.ER.24 PO SCH (11:25)
[2020-12-23] MEDS: Nicotine 21 MG PATCH.TD24 TD SCH (11:25)
[2020-12-23] MEDS: diazePAM 10 MG TABLET PO SCH ×3 (11:25→21:33)
[2020-12-23] MEDS: Gabapentin 300 MG CAPSULE PO SCH ×3 (11:25→21:33)
[2020-12-23] MEDS: GuaiFENesin Liq 200 MG/10 ML UDC PO PRN (12:17)
[2020-12-23] MEDS: cefTRIAXone 1,000 MG in 0.9 % Sodium Chloride Mini Bag 100 ML IVPB SCH (13:33)
[2020-12-23] MEDS: Azithromycin 500 MG in 0.9 % Sodium Chloride 250 ML IVPB SCH (13:34)
[2020-12-23] MEDS: carvediloL 6.25 MG TABLET PO SCH (16:46)
[2020-12-23] MEDS: *HR* OxyCODONE Immed Rel 5 MG TABLET PO PRN (17:50)
[2020-12-23] MEDS: Methylphenidate HCl 10 MG TABLET PO SCH (21:33)
[2020-12-24] MEDS: Ipratropium/Albuterol Neb 3 ML IH SCH ×6 (04:36→23:37)
[2020-12-24] MEDS: *HR* Heparin 5,000 UNIT/ML VIAL SQ SCH ×3 (05:05→20:57)
[2020-12-24] MEDS: *HR* OxyCODONE Immed Rel 5 MG TABLET PO PRN (05:05)
[2020-12-24 05:51] LABS: Hematocrit 45.2 % (37.5-50.1); Hemoglobin 14.2 g/dL (12.9-16.9); Mean Corpuscular HGB Conc 31.4 g/dL (31.6-35.5); Mean Corpuscular Hemoglobin 29.2 pg (28.0-33.3); Mean Platelet Volume 9.9 fL (9.4-12.4); Platelet Count 254 K/mcL (140-400); Red Blood Count 4.86 M/mcL (4.19-5.50); Red Cell Distribution Width 13.7 % (11.5-14.5); White Blood Count 10.2 K/mcL (4.3-11.1)
[2020-12-24 06:00] LABS: Calcium 8.6 mg/dL (8.6-10.3); Potassium 4.6 mEq/L (3.5-5.1)
[2020-12-24] MEDS: Budesonide/Formoterol 160/4.5 1 PUFF INH IH SCH ×2 (07:36→19:57)
[2020-12-24] MEDS: NIFEdipine XL (24 HR) 30 MG TAB.ER.24 PO SCH (07:43)
[2020-12-24] MEDS: Methylphenidate HCl 10 MG TABLET PO SCH ×3 (07:43→20:57)
[2020-12-24] MEDS: carvediloL 6.25 MG TABLET PO SCH ×2 (07:43→16:17)
[2020-12-24] MEDS: Aspirin Enteric Coated 81 MG Tablet PO SCH (07:43)
[2020-12-24] MEDS: Sucralfate 1 GM TABLET PO SCH ×2 (07:43→16:16)
[2020-12-24] MEDS: diazePAM 10 MG TABLET PO SCH ×3 (07:44→20:57)
[2020-12-24] MEDS: Gabapentin 300 MG CAPSULE PO SCH ×3 (07:44→20:57)
[2020-12-24] MEDS: predniSONE 20 MG TABLET PO SCH (07:44)
[2020-12-24] MEDS ORDERED: lisinopriL 20 MG TABLET PO SCH (09:00)
[2020-12-24] MEDS: Insulin LISPRO 300 UNITS/3 ML VIAL SUBQ SCH ×4 (09:54→20:55)
[2020-12-24] MEDS: cefTRIAXone 1,000 MG in 0.9 % Sodium Chloride Mini Bag 100 ML IVPB SCH (14:27)
[2020-12-24] MEDS: Azithromycin 250 MG TABLET PO SCH (14:28)
[2020-12-24] MEDS: Melatonin 3 MG TABLET PO PRN (20:57)
[2020-12-25] MEDS: Ipratropium/Albuterol Neb 3 ML IH SCH ×6 (04:16→23:54)
[2020-12-25] MEDS: Sucralfate 1 GM TABLET PO SCH ×2 (05:07→15:58)
[2020-12-25] MEDS: *HR* Heparin 5,000 UNIT/ML VIAL SQ SCH ×3 (05:07→20:29)
[2020-12-25] MEDS: Budesonide/Formoterol 160/4.5 1 PUFF INH IH SCH ×2 (07:30→19:32)
[2020-12-25 07:38] LABS: Basophils % 0.2 %; Eosinophils # 0.1 K/mcL (0.0-0.6); Eosinophils % 0.6 %; Hemoglobin 13.6 g/dL (12.9-16.9); Immature Granulocytes % 0.6 % (0-4); Lymphocytes # 2.6 K/mcL (0.6-4.6); Mean Corpuscular HGB Conc 31.6 g/dL (31.6-35.5); Mean Corpuscular Hemoglobin 29.1 pg (28.0-33.3); Mean Corpuscular Volume 92.1 fL (83.0-100.0); Mean Platelet Volume 10.4 fL (9.4-12.4); Monocytes # 1.3 K/mcL (0.0-1.3); Monocytes % 12.2 %; Neutrophils # 6.9 K/mcL (1.6-8.9); Platelet Count 313 K/mcL (140-400); Red Blood Count 4.67 M/mcL (4.19-5.50); Red Cell Distribution Width 13.7 % (11.5-14.5); Segmented Neutrophils % 62.4 %
[2020-12-25] MEDS: Insulin LISPRO 300 UNITS/3 ML VIAL SUBQ SCH ×4 (07:49→20:30)
[2020-12-25 08:05] LABS: Calcium 8.4 mg/dL (8.6-10.3); Magnesium 2.6 mg/dL (1.6-2.6); Potassium 4.4 mEq/L (3.5-5.1)
[2020-12-25] MEDS: carvediloL 6.25 MG TABLET PO SCH ×2 (09:50→16:08)
[2020-12-25] MEDS: Methylphenidate HCl 10 MG TABLET PO SCH ×3 (09:50→20:29)
[2020-12-25] MEDS: NIFEdipine XL (24 HR) 30 MG TAB.ER.24 PO SCH (09:50)
[2020-12-25] MEDS: Aspirin Enteric Coated 81 MG Tablet PO SCH (09:50)
[2020-12-25] MEDS: diazePAM 10 MG TABLET PO SCH ×3 (09:50→20:29)
[2020-12-25] MEDS: predniSONE 20 MG TABLET PO SCH (09:50)
[2020-12-25] MEDS: Gabapentin 300 MG CAPSULE PO SCH ×3 (09:50→20:29)
[2020-12-25] MEDS: 0.9 % Sodium Chloride 1,000 ML IVC SCH (09:51)
[2020-12-25] MEDS: Azithromycin 250 MG TABLET PO SCH (13:20)
[2020-12-25] MEDS: cefTRIAXone 1,000 MG in 0.9 % Sodium Chloride Mini Bag 100 ML IVPB SCH (13:20)
[2020-12-25 19:11] LABS: Calcium 8.7 mg/dL (8.6-10.3); Potassium 5.6 mEq/L (3.5-5.1)
[2020-12-25] MEDS: Melatonin 3 MG TABLET PO PRN (20:29)
[2020-12-26] MEDS: 0.9 % Sodium Chloride 1,000 ML IVC SCH ×2 (01:01→15:48)
[2020-12-26] MEDS: Ipratropium/Albuterol Neb 3 ML IH SCH ×6 (04:19→23:26)
[2020-12-26] MEDS: *HR* Heparin 5,000 UNIT/ML VIAL SQ SCH ×3 (05:36→22:54)
[2020-12-26] MEDS: Sucralfate 1 GM TABLET PO SCH ×2 (05:36→15:41)
[2020-12-26] MEDS: Budesonide/Formoterol 160/4.5 1 PUFF INH IH SCH ×2 (07:21→19:38)
[2020-12-26] MEDS: Insulin LISPRO 300 UNITS/3 ML VIAL SUBQ SCH ×4 (07:24→22:55)
[2020-12-26] MEDS: carvediloL 6.25 MG TABLET PO SCH ×2 (07:56→17:28)
[2020-12-26] MEDS: Methylphenidate HCl 10 MG TABLET PO SCH ×3 (07:56→22:54)
[2020-12-26] MEDS: Gabapentin 300 MG CAPSULE PO SCH ×3 (07:57→22:55)
[2020-12-26] MEDS: Aspirin Enteric Coated 81 MG Tablet PO SCH (07:57)
[2020-12-26] MEDS: diazePAM 10 MG TABLET PO SCH ×3 (07:57→22:55)
[2020-12-26] MEDS: NIFEdipine XL (24 HR) 30 MG TAB.ER.24 PO SCH (07:57)
[2020-12-26 09:08] LABS: Calcium 8.7 mg/dL (8.6-10.3); Potassium 5.3 mEq/L (3.5-5.1)
[2020-12-26 09:09] LABS: Basophils % 0.2 %; Eosinophils % 0.3 %; Hematocrit 45.5 % (37.5-50.1); Hemoglobin 14.6 g/dL (12.9-16.9); Immature Granulocytes % 1.2 % (0-4); Lymphocytes # 2.6 K/mcL (0.6-4.6); Lymphocytes % 21.7 %; Mean Corpuscular HGB Conc 32.1 g/dL (31.6-35.5); Mean Corpuscular Hemoglobin 29.2 pg (28.0-33.3); Mean Platelet Volume 10.6 fL (9.4-12.4); Monocytes # 1.1 K/mcL (0.0-1.3); Neutrophils # 8.1 K/mcL (1.6-8.9); Platelet Count 319 K/mcL (140-400); Red Cell Distribution Width 13.5 % (11.5-14.5); Segmented Neutrophils % 67.6 %; White Blood Count 12.1 K/mcL (4.3-11.1)
[2020-12-26] MEDS: cefTRIAXone 1,000 MG in 0.9 % Sodium Chloride Mini Bag 100 ML IVPB SCH (15:40)
[2020-12-26 17:53] LABS: Calcium 8.3 mg/dL (8.6-10.3); Potassium 5.1 mEq/L (3.5-5.1)
[2020-12-27] MEDS: 0.9 % Sodium Chloride 1,000 ML IVC SCH ×2 (02:53→07:52)
[2020-12-27] MEDS: Ipratropium/Albuterol Neb 3 ML IH SCH ×5 (03:37→20:20)
[2020-12-27] MEDS: *HR* Heparin 5,000 UNIT/ML VIAL SQ SCH ×3 (05:27→20:23)
[2020-12-27 06:46] LABS: Basophils # 0.1 K/mcL (0.0-0.2); Basophils % 0.6 %; Eosinophils # 0.1 K/mcL (0.0-0.6); Eosinophils % 1.5 %; Hematocrit 46.6 % (37.5-50.1); Hemoglobin 14.2 g/dL (12.9-16.9); Immature Granulocytes % 1.9 % (0-4); Lymphocytes # 2.6 K/mcL (0.6-4.6); Mean Corpuscular HGB Conc 30.5 g/dL (31.6-35.5); Mean Corpuscular Hemoglobin 28.5 pg (28.0-33.3); Mean Corpuscular Volume 93.6 fL (83.0-100.0); Mean Platelet Volume 9.9 fL (9.4-12.4); Monocytes % 10.2 %; Neutrophils # 5.4 K/mcL (1.6-8.9); Platelet Count 363 K/mcL (140-400); Red Blood Count 4.98 M/mcL (4.19-5.50); Red Cell Distribution Width 13.9 % (11.5-14.5); Segmented Neutrophils % 57.8 %; White Blood Count 9.4 K/mcL (4.3-11.1)
[2020-12-27 07:13] LABS: Calcium 8.6 mg/dL (8.6-10.3); Potassium 4.9 mEq/L (3.5-5.1)
[2020-12-27] MEDS: Insulin LISPRO 300 UNITS/3 ML VIAL SUBQ SCH ×4 (08:25→20:04)
[2020-12-27] MEDS: Aspirin Enteric Coated 81 MG Tablet PO SCH (08:33)
[2020-12-27] MEDS: diazePAM 10 MG TABLET PO SCH ×3 (08:33→20:23)
[2020-12-27] MEDS: Gabapentin 300 MG CAPSULE PO SCH ×3 (08:33→20:23)
[2020-12-27] MEDS: Sucralfate 1 GM TABLET PO SCH ×2 (08:33→20:22)
[2020-12-27] MEDS: NIFEdipine XL (24 HR) 30 MG TAB.ER.24 PO SCH (08:33)
[2020-12-27] MEDS: Methylphenidate HCl 10 MG TABLET PO SCH ×3 (08:33→20:23)
[2020-12-27] MEDS: carvediloL 6.25 MG TABLET PO SCH ×2 (08:33→20:22)
[2020-12-27] MEDS: Budesonide/Formoterol 160/4.5 1 PUFF INH IH SCH ×2 (10:38→20:20)
[2020-12-27 12:46] LABS: Uric Acid 7.6 mg/dL (2.3-7.6)
[2020-12-27] MEDS: cefTRIAXone 1,000 MG in 0.9 % Sodium Chloride Mini Bag 100 ML IVPB SCH (14:32)
[2020-12-28] MEDS: 0.9 % Sodium Chloride 1,000 ML IVC SCH ×2 (00:13→00:18)
[2020-12-28] MEDS: Ipratropium/Albuterol Neb 3 ML IH SCH ×3 (00:26→07:51)
[2020-12-28] MEDS: *HR* Heparin 5,000 UNIT/ML VIAL SQ SCH (05:53)
[2020-12-28] MEDS: carvediloL 6.25 MG TABLET PO SCH (07:42)
[2020-12-28] MEDS: Sucralfate 1 GM TABLET PO SCH (07:42)
[2020-12-28] MEDS: Gabapentin 300 MG CAPSULE PO SCH (07:43)
[2020-12-28] MEDS: NIFEdipine XL (24 HR) 30 MG TAB.ER.24 PO SCH (07:43)
[2020-12-28] MEDS: Aspirin Enteric Coated 81 MG Tablet PO SCH (07:43)
[2020-12-28] MEDS: Methylphenidate HCl 10 MG TABLET PO SCH (07:44)
[2020-12-28] MEDS: diazePAM 10 MG TABLET PO SCH (07:44)
[2020-12-28] MEDS: Budesonide/Formoterol 160/4.5 1 PUFF INH IH SCH (07:52)
[2020-12-28 10:06] VITALS: BP 144/87; PULSE 85; TEMP 98.4; O2SAT 93
== END 2020-12-28 11:17 | disposition left against medical advice (07) | DRG 193 ==
LOC: 3ANU 07:21 → EMEROOARM 07:21 → SUATTDRO 12:25 → 3ANU 13:09
PROVIDERS: ADMIT Internal Medicine; ATTEND Family Medicine